=== PATIENT | male | born 1965 | race Caucasian/White ===

== ENCOUNTER 2023-02-22 19:59 | Emergency (ER) | payer OTHER, SELFPAY ==
[2023-02-22 20:07] VITALS: BP 166/106; PULSE 77; TEMP 36.5; O2SAT 96; BMI 30.5
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
[2023-02-22] MEDS: TETANUS/DIPHTH/PERTUSSIS 0.5 ML SYRINGE IM (21:00)
== END 2023-02-22 22:12 | disposition home or self-care (01) ==
LOC: ED 20:57
PROVIDERS: Emergency Provider Student in an Organized Health Care Education/Training Program
DX: S01.01XA Laceration without foreign body of scalp, initial encounter (principal); S09.8XXA Other specified injuries of head, initial encounter; W20.8XXA Other cause of strike by thrown, projected or falling object, initial encounter
CPT/HCPCS: 12001; 70450; 72125; 90471; 90715; 99283; 99284